=== PATIENT | female | born 1935 | race Two or more races ===

== ENCOUNTER 2017-06-02 14:46 | Outpatient (CLI) | payer MEDICARE, OTHER ==
[~2017-06-02 14:46] MED LIST: ACTONEL35 MG ORAL; ALBUTEROL2.5 MG/3 M INH; BRIMONIDINE TART5 ML BOTH EYES; FLONASE1 SPRAYS NASAL; FUROSEMIDE40 MG ORAL; KETOCONAZOLE15 GM TOP; LATANOPROST2.5 ML BOTH EYES; TRIAZOLAM0.25 MG PO
--- NOTE | 2017-06-02 15:36 | Diagnostic Imaging Report ---
Indication: Shortness of breath Technique: 2 views of the chest Comparison: none Findings: Innumerable nodules of varying sizes are seen throughout both lungs. There is a large hiatal hernia. No definite infiltrates or effusions. The left hemidiaphragm is elevated the thoracic spine is poorly visualized, osteoporotic, but there is suggestion of compression fractures at the thoracolumbar junction Impression: Innumerable pulmonary nodules bilaterally, suspicious for metastatic disease No definite infiltrates Hiatal hernia
== END 2017-06-02 16:46 | disposition home or self-care (01) ==
LOC: RAD 14:46
DX: R06.02 Shortness of breath (principal); K44.9 Diaphragmatic hernia without obstruction or gangrene; R91.8 Other nonspecific abnormal finding of lung field; M81.0 Age-related osteoporosis without current pathological fracture
CPT/HCPCS: 71020